=== PATIENT | female | born 1970 | race Caucasian/White ===

== ENCOUNTER → 2019-02-07 11:50 | Outpatient (CLI) | payer BC, SELFPAY ==
[2019-01-29 11:26] VITALS: BMI 36.8
== END ==
PROVIDERS: Family Provider Family Medicine; PCP Family Medicine; Referring Provider Obstetrics & Gynecology; Visit Provider Obstetrics & Gynecology
DX: R93.89 Abnormal findings on diagnostic imaging of other specified body structures (principal); N39.3 Stress incontinence (female) (male); N92.6 Irregular menstruation, unspecified

== ENCOUNTER → 2019-02-20 11:59 | Outpatient (CLI) | payer BC, SELFPAY ==
[2019-01-29 11:26] VITALS: BMI 36.8
--- NOTE | 2019-02-20 12:03 | US_ITS ---
STUDY: ULTRASOUND OF THE FEMALE PELVIS - COMPLETE REASON FOR EXAM: Female, 48 years old. Menorrhagia. LMP: February 09, 2019. TECHNIQUE: Transabdominal and Transvaginal TECHNICAL QUALITY: Adequate. COMPARISON: None. FINDINGS: The uterus is anteverted and is in a midline position. The uterus is enlarged and measures 11.7 cm x 9.3 cm x 6.4 cm. Normal uterine cervix. The endometrium measures 9 mm in thickness, and is hyperechoic. There is no demonstrated endometrial mass. Multiple fibroids are seen. The largest measures 4.5 cm x 5.5 cm x 4.2 cm. I.U.D. - The patient does not have an I.U.D. The right ovary is visualized. The right ovary measures 3.4 cm x 2.6 cm x 2.1 cm. There is no right ovarian cyst or ovarian mass. There is no visualized right adnexal mass or complex lesion. There is normal arterial and normal venous vascularity. The left ovary is visualized. The left ovary measures 3.7 cm x 2.8 cm x 2.0 cm. There is no left ovarian cyst or ovarian mass. There is no visualized left adnexal mass or complex lesion. There is normal arterial and normal venous vascularity. There is no fluid in the cul-de-sac. Polycystic ovary disease: No. US/Pelvic (Non ) IMPRESSION: Enlarged fibroid uterus with at least 3 distinct fibroids. The largest measures 4.5 cm x 5.5 cm by 4.2 cm. Electronically Signed: Wai Escobar, at 14:24 EST , Service support ,
--- NOTE | 2019-02-20 12:03 | US_ITS ---
STUDY: ULTRASOUND OF THE FEMALE PELVIS - COMPLETE REASON FOR EXAM: Female, 48 years old. Menorrhagia. LMP: February 09, 2019. TECHNIQUE: Transabdominal and Transvaginal TECHNICAL QUALITY: Adequate. COMPARISON: None. FINDINGS: The uterus is anteverted and is in a midline position. The uterus is enlarged and measures 11.7 cm x 9.3 cm x 6.4 cm. Normal uterine cervix. The endometrium measures 9 mm in thickness, and is hyperechoic. There is no demonstrated endometrial mass. Multiple fibroids are seen. The largest measures 4.5 cm x 5.5 cm x 4.2 cm. I.U.D. - The patient does not have an I.U.D. The right ovary is visualized. The right ovary measures 3.4 cm x 2.6 cm x 2.1 cm. There is no right ovarian cyst or ovarian mass. There is no visualized right adnexal mass or complex lesion. There is normal arterial and normal venous vascularity. The left ovary is visualized. The left ovary measures 3.7 cm x 2.8 cm x 2.0 cm. There is no left ovarian cyst or ovarian mass. There is no visualized left adnexal mass or complex lesion. There is normal arterial and normal venous vascularity. There is no fluid in the cul-de-sac. Polycystic ovary disease: No. US/Transvaginal Non- IMPRESSION: Enlarged fibroid uterus with at least 3 distinct fibroids. The largest measures 4.5 cm x 5.5 cm by 4.2 cm. Electronically Signed: Wai Escobar, at 14:24 EST , Service support ,
== END ==
PROVIDERS: Family Provider Family Medicine; PCP Family Medicine; Referring Provider Obstetrics & Gynecology; Visit Provider Obstetrics & Gynecology
DX: N92.6 Irregular menstruation, unspecified (principal); D25.9 Leiomyoma of uterus, unspecified
CPT/HCPCS: 76830; 76856; 93976

== ENCOUNTER 2019-03-16 17:03 | Observation (INO) | payer BC, SELFPAY ==
[2019-01-29 11:26] VITALS: BMI 36.8
[2019-03-12 13:07] VITALS: BMI 36.8
--- NOTE | 2019-03-12 13:49 | EKG12_ITS ---
Test Reason : PREOP Blood Pressure : / mmHG Vent. Rate : 070 BPM Atrial Rate : 070 BPM P-R Int : 140 ms QRS Dur : 080 ms QT Int : 396 ms P-R-T Axes : 043 020 021 degrees QTc Int : 427 ms Normal sinus rhythm Low voltage QRS Borderline ECG Confirmed by JAMARCUS CARMONA, JULES ([id number]), makeup editor WALLACE HARVEY ([id number]) on 03/13/2019 2:48:23 PM Referred By: Sherrell Ashton Confirmed By:JULES RICKETTS MD
[2019-03-12 15:24] LABS: Hematocrit 39.7 % (37-47); Hemoglobin 12.8 g/dL (12.0-15.0); Mean Corp Hgb Conc 32.2 g/dL (32-36); Mean Corpuscular Hgb 28.7 pg (27.0-32.0); Mean Platelet Vol. 10.6 fl (6.2-12.0); Platelet Count 266 K/mm3 (150-450); RBC Distribution Width CV 13.2 % (11.6-14.6); RBC Distribution Width SD 42.8 fl (35.1-43.9); Red Blood Count 4.46 M/mm3 (4.2-5.4)
[2019-03-12 16:05] LABS: ALB/GLOB Ratio 0.9 RATIO (0.9-2.4); AST(SGOT) 23 U/L (15-37); Alanine Aminotransfer ALT/SGPT 31 U/L (13-56); Albumin, Serum 3.5 g/dL (3.2-5.0); Alkaline Phosphatase 77 U/L (45-117); Anion Gap 7 (5-15); BUN 13 mg/dL (7-18); BUN/Creat Ratio 19.3 RATIO (10-20); Calcium,Total 8.7 mg/dL (8.5-10.1); Chloride 104 mmol/L (98-107); Creatinine, Serum 0.67 mg/dL (0.55-1.02); EST Glomerular Filtration Rate 99 mL/min (>60); Est Glom Filt Rate - Afr Amer 120 mL/min (>60); Glucose 107 mg/dL (74-106); Potassium 3.7 mmol/L (3.5-5.1); Protein, Total 7.5 g/dL (6.4-8.2); Sodium Level 139 mmol/L (136-145)
[2019-03-16] VITALS (10 sets, daily range): BP systolic 116–147; BP diastolic 70–85; PULSE 62–86; RESP 16–18; TEMP 36.6–36.9; O2SAT 93–99; BMI 36.0; BMI 38.7
[2019-03-16] MEDS: Magnesium Sulfate 4gm/100mL 4 GM/100 ML IV.SOLN. IV (07:00)
[2019-03-16 11:34] LABS: Pregnancy, Urine Negative Negative
[2019-03-16 11:35] LABS: Internal QC Validated? YES +Cl - CLEAR BKGD
[2019-03-16] MEDS: Lactated Ringers 1,000 ML 40 ML IV (11:56)
[2019-03-16] MEDS: dexAMETHasone 10 MG/ML Vial 8 MG IV (11:57)
[2019-03-16] MEDS: Celecoxib 200 MG Capsule 400 MG PO (11:58)
[2019-03-16] MEDS: Scopolamine 1mg/72hr Patch 1 PATCH TRANSDERM. (11:58)
[2019-03-16] MEDS: Gabapentin 600 MG Tablet PO (11:58)
[2019-03-16] MEDS: Acetaminophen 500 MG Tablet 1000 MG PO (11:59)
--- NOTE | 2019-03-16 12:01 | PCM.HPOB.BLA ---
- Problem List (1) Stress incontinence Status: Acute Comment: plan urogyn eval (2) Endometrial thickening on ultra sound Status: Acute (3) Irregular menstrual bleeding Status: Acute Comment: failed ablation, recommend TVHBSO, plan sling combo case with urogyn, US ordered. nl cbc and tsh with PCP. 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 Is patient in pain?: No Allergies No Known Allergies Allergy (Verified 03/12/19 13:06) Medications albuterol sulfate HFA 90 mcg/actuation aerosol inhaler 1 puff INHALATION Q6H PRN 01/29/19 [History Confirmed 03/12/19] triamcinolone acetonide 0.1 % topical cream 1 applic TOPICAL DAILY PRN 01/29/19 [History Confirmed 03/12/19] lorazepam 1 mg tablet 1 mg PO BID PRN #14 tab 03/12/19 [Rx Confirmed 03/12/19] Is last menstrual period known: No Post menopausal: No Patient : No : No [facility] Medical History Anxiety (Acute) Surgical History History of cholecystectomy (Acute) History of endometrial ablation (Acute) Status post eye surgery (Acute) Family History Mother Cancer, Onset Age: 48 ovarian cancer colon cancer Eric disease Father Diabetes Hypertension CVA (cerebral vascular accident) Social History (Updated 03/12/19 @ 18:18 by Sherrell Ashton MD) Smoking Status: Never smoker alcohol intake: never substance use type: does not use caffeine: Yes what type of physical activity do you participate in: walking seatbelt use: always do you feel safe at home: Yes additional social history: Ronny FAJARDO Patient is a nurse at the [employer] HPI pre op: Details: MATT GARNER is a 48 year old who presents for preop visit. she is going to have an LAVH for AUB and fibroids, and sling for DEREK Pregancy History 2 Elective abortions Hx Para 2 Spontaneous abortions Hx # Term Pregnancies Ectopic pregnancies Hx # Pregnancies Multiple births # of living children ROS Const Constitutional: Denies fatigue, fever(s), headache(s), increased appetite, poor appetite, weight gain or weight loss ENT ENT: Denies dizziness or dry mouth Cardio Card: Denies chest pain Resp Resp: Denies cough or dyspnea GI GI: Reports as per HPI; denies abdominal pain, constipation, nausea or vomiting Musc Musc: Denies joint pain, back pain or muscle weakness Skin Skin/Breast: Denies hair loss, change in hair, dry skin, breast lump, breast pain or breast skin changes Neuro Neuro: Denies dizziness Psych Psych: Denies anxiety or depression Endo Endo: Denies cold intolerance, excessive sweating, heat intolerance or increased thirst Alan/Lymph Hematologic/Lymphatic: Denies easy bleeding, Denies easy bruising, Denies enlarged lymph nodes Exam Const General: cooperative, healthy appearing, comfortable, no acute distress, well developed Nutritional Appearance: average body habitus Orientation: alert [facility] Head: normal to inspection, normocephalic Ears: hearing grossly normal bilaterally, external ears normal Nose: external nose normal, nares normal Face and sinus: normal facial exam Neck Neck: normal visual inspection, no lymphadenopathy, trachea midline Thyroid: thyroid normal Chest Chest palpation & inspection: normal inspection of the chest Resp Effort & Inspection: normal respiratory effort Auscultation: clear to auscultation bilaterally Cardio Rate: regular rate Rhythm: regular rhythm Heart Sounds: S1 normal, S2 normal GI Inspection: normal to inspection, non-distended Palpation: soft, no hepatosplenomegaly General: bladder normal to palpation External Female Exam: normal external appearance, normal appearance of the urethra Urethra: normal appearance of the urethra Speculum Exam - Vagina: normal appearance of the vagina, normal vaginal discharge Speculum Exam - Cervix: normal appearance of the cervix, nontender Bimanual Exam- Vagina & Uterus: bladder normal to palpation, No cervical tenderness Bimanual Exam- Adnexa, other: normal adnexae, adnexae mobile, no adnexal masses, No pelvic support normal, rectocele Pelvic Support: abnormal, rectocele Musc Cervical Spine: other Other: gross motor intact no deficits, full bilateral strength Skin General: no rashes or lesions noted Neuro General: alert, awake, moves all extremities, no focal motor deficits Motor: muscle tone normal throughout Extrem General: normal to inspection, no pedal edema Psych Appearance: grossly normal Mental Status: mental status grossly normal Affect: normal affect Speech and Movement: speech and movement normal Assessment & Plan Problems 1. Stress incontinence N39.3 plan urogyn eval 2. Irregular menstrual bleeding N92.6 failed ablation, recommend TVHBSO, plan sling combo case with urogyn, US ordered. nl cbc and tsh with PCP. Plan After discussing the patient's diagnosis and treatment plan options, patient wishes to proceed with surgical management. I have discussed with the patient the risks, benefits, and alternatives of the procedure which include but are not limited to risks of anesthesia, bleeding, infection, possible damage to bowel, bladder, or surrounding vasculature which could lead to additional surgery to evaluate any complications. Patient agrees to procedure and wishes to proceed. Medications New: lorazepam (Ativan) 1 mg PO BID PRN 14 tabs 0RF N92.6 Coding Level of Care Code No Charge UPDATE- I have seen the patient and performed any clinically relevant updates to the history and physical exam. Sherrell Ashton MD
[2019-03-16 12:20] LABS: Bedside Glucose 82 mg/dL (70-110)
--- NOTE | 2019-03-16 13:00 | HYST_PTH ---
PATIENT: MATT GARNER LOC: [facility]3 U#:[id number] AGE/SX: 48/F ROOM: MS314 RE03/16/[address]: Dr. Sherrell Ashton MD : 1970 BED: 1 DIS: 03/17/2019 SPEC #: [id number] RECD: 03/16/19 15:43 STATUS: AMBER REChas #: [id number] JESSICA: 03/16/19 13:[address]: Sherrell Ashton DEPT: SURGICAL PATHOLOGY RECD BY: Go Alfaro ENTERED: 03/19/19 09:46 SP TYPE: HYSTERECT OTHR DR: MD Dr. Queta Anderson MD Tissues: Uterus, NOS Procedures: Surgery Specimen Level V HEADER OPERATION: ERS, lap vaginal hysterectomy, bilateral salpingo oophorectomy PRE-OP DIAGNOSIS: Stress incontinence, endometrial thickening on ultra sound, irregular menstrual bleeding TISSUE SUBMITTED: Uterus, bilateral fallopian tubes and ovaries MICROSCOPIC DIAGNOSIS Uterus, hysterectomy: Cervix - squamous metaplasia and mild chronic inflammation. Endometrium - secretory endometrium. Myometrium - leiomyoma and focal adenomyosis. Right ovary - serous cyst adenoma. Right fallopian tube - benign paratubal cyst. Left ovary - follicular cyst. Left fallopian tube - no pathologic change. AM:saran 03/20/19 MICROSCOPIC DESCRIPTION Slides are reviewed. GROSS DESCRIPTION Received in fixative is one container labeled with the patient's name and designated uterus. The specimen consists of a hysterectomy specimen consisting of uterus, cervix, attached bilateral fallopian tubes, right ovary and detached left ovary. The uterus with cervix weighs 234 gm and measures 14 x 9 x 6 cm. The serosal surface is yu and glistening. A subserosal nodule is noted. The ectocervical mucosa is unremarkable. The external os is oval in contour. The endocervical canal measures 3 cm in length and the endocervical mucosa is yu, glistening and unremarkable. The triangular endometrial cavity measures 6 cm in length and up to 3 cm in width. The endometrium is yu, glistening and without mass lesion and measures 0.1 cm in thickness. Section of uterine wall reveals multiple intramural and subserosal nodular masses. The largest mass is subserosal in location and measures 4 cm in diameter. The uninvolved uterine wall measures 2.5 cm in thickness. The right fallopian tube measures 7 cm in length and 0.5 cm in diameter. Fimbrial end is identified. No masses are noted. Soft cystic right ovary measures 5 x 2.5 x 2 cm. Cysts measuring 3.5 cm in greatest dimension. The left fallopian tube measures 7 cm in length and 0.6 cm in diameter. Fimbrial end is identified. Sections reveal unremarkable cut surfaces. The left ovary measures 3 x 2.5 x 2 cm. The section reveals a cyst filled with clear fluid measuring 0.5 cm in greatest dimension. Operations Supervisor sections are submitted in 12 cassettes as follows: 1 - anterior cervix, 2 - posterior cervix, 3 & 4 - anterior uterine wall, 5 & 6 - posterior uterine wall, 7 - largest nodular mass, 8 - second largest nodular mass, 9 - smallest nodular masses, 10 - right fallopian tube, right ovary, cyst, 11 - more sectioned right ovary including cyst, 12 - left fallopian tube and ovary. VINITA:saran 03/19/19 TC: 1 CPT: 94450
[2019-03-16] MEDS: Ondansetron 4 MG/2 ML Vial IV (13:15)
[2019-03-16] MEDS: Lubricating Jelly 60 GM Tube 30 GM TOPICAL (13:45)
[2019-03-16] MEDS: Cefazolin 2 GM in 0.9% Normal Saline 100 ML IV (13:45)
[2019-03-16] MEDS: Bupivacaine 0.25% 30 ML Vial (14:00)
[2019-03-16] MEDS: Vasopressin 20 UNITS/ML Vial (14:24)
[2019-03-16] MEDS: Estrogens,Conj. 1 Tube 1 DOSE (14:24)
--- NOTE | 2019-03-16 16:48 | PCM.OPRPT ---
Problem List (1) Cystocele Status: Acute (2) Rectocele Status: Acute (3) Stress incontinence Status: Acute Comment: plan urogyn mita Report of Operation Date of Procedure: 03/16/19 Pre-Operative Diagnosis: Cystocele, rectocele, apical prolapse, stress urinary incontinence Post-Operative Diagnosis: Same, good apical support and the sacrospinous ligament portion of the procedure was aborted Surgery/Procedure Performed:: Anterior and posterior repair, mid urethral sling and cystoscopy Type of Anesthesia:: General Estimated Blood Loss (mL): 25cc Description of Procedure: The patient is a 48-year-old female who presented to the office with evidence of pelvic organ prolapse and stress incontinence. She was going to undergo a hysterectomy and desired concomitant repair. She was evaluated with a cystoscopy and urodynamics. Informed consent was obtained. Patient was taken to the operating room and placed in the operating room table. Anesthesia monitored the head, neck, airway, IV access and vital signs throughout the case. Once anesthesia was appropriately administered the patient was prepped and draped in usual sterile fashion and a 16 [place] Amato catheter was inserted. She underwent an LAVH per Dr. Ashton, and the case was turned over to wi following closure of the cuff. At this time the anterior wall was grasped and injected with vasopressin for hydrostatic dissection and hemostatic control. A midline incision approximately 1.5 cm in length was then made. Both sharp and blunt dissection ensued until the pubocervical fascia was identified bilaterally. This was brought together with 2-0 Vicryl in interrupted fashion, 2 layer repair. The vaginal mucosa was closed with 2-0 running interlocking 0 Vicryl. Attention was turned towards the rectum. Her rectum was significantly scarred into the vaginal wall which was very thin. Almost all of the dissection posteriorly was performed in a sharp fashion with Metzenbaums. The rectovaginal fascia was brought together in a 2 layer repair. The perineal body was reconstructed with a perineoplasty in a 2 layer repair. The vaginal wall was then closed with running interlocking 2-0 Vicryl. The mid urethra was injected with vasopressin and a midline incision was made. The area around the urethra was also very scarred and difficult to dissect. The dissection here was mostly sharp as well. The alto's mid urethral sling was inserted using the trochars first the patient's right side than the left. The sling lay flat against the urethra and was tensioned using the tensioning suture. The suture was then cut. The incision was closed using running interlocking 2-0 Vicryl. The Amato catheter was removed and a cystoscopy was performed revealing bilateral ureteral jets. No entry into the urinary bladder with any foreign object was identified. There was no bleeding or any injury to the mucosa. At this time the cystoscope was removed and the Amato catheter was placed. The vagina was packed with Premarin cream and vaginal packing. She was awakened and taken to the recovery room in good condition. There were no complications during the procedure. Grafts/Implants Used: Altis midurethral sling - Complications none - Admit VTE Documentation VTE Present on Admission: Yes VTE Mechan Device Prophylaxis: SCD's VTE Pharm Prophylaxis ordered?: Yes
--- NOTE | 2019-03-16 17:00 | DCINST_ITS ---
Discharge Diet: No Restrictions Discharge Activity: May Not Drive - for 2 weeks May resume sexual activity in: 8 weeks Lifting Restrictions: 5 pounds Additional Activity Instructions:: no exercise, no strenuous activity, no intercourse, nothing per vagina Call your doctor if your incision/area has: Continuous Slow Oozing, Sudden Increased Bleeding, Foul Smelling Discharge Call your doctor if you observe: Fever of 101 or Higher, Inability to urinate, Inability to have a bowel movement, Calf discomfort, Uncontrolled pain Allergies/Adverse Reactions: Allergies No Known Allergies Allergy (Verified 03/16/19 11:36) Medications to take at Discharge albuterol sulfate HFA 90 mcg/actuation aerosol inhaler 1 puff INHALATION Q6H PRN 01/29/19 triamcinolone acetonide 0.1 % topical cream 1 applic TOPICAL DAILY PRN 01/29/19 lorazepam 1 mg tablet 1 mg PO BID PRN #14 tab 03/12/19 Cephalexin [Keflex] 500 mg PO Q12.TCU #6 cap 03/17/19 Naproxen [Naprosyn] 250 - 500 mg PO Q8H PRN PRN #30 tab 03/17/19 Oxycodone HCl/Acetaminophen [Percocet 5-325] 1 - 2 tab PO Q6H PRN PRN 7 Days #15 tab 03/17/19 The following prescriptions were given: Cephalexin [Keflex] 500 mg PO Q12.TCU #6 cap Prescription Printed Naproxen [Naprosyn] 250 - 500 mg PO Q8H PRN PRN #30 tab PRN Reason: MILD PAIN Transmission Status: Received by [facility] Oxycodone HCl/Acetaminophen [Percocet 5-325] 1 - 2 tab PO Q6H PRN PRN 7 Days #15 tab PRN Reason: Pain Transmission Status: Received by [facility] Orders to be completed after discharge: Type & Screen Time Frame: 03/07/19, Facility: [facility], Location: Laboratory 12 Lead EKG [[facility]] Time Frame: 03/07/19, Facility: [facility], Location: Cardiovascular Services CBC-Complete Blood Cnt No Diff Time Frame: 03/07/19, Facility: [facility], Location: Laboratory Comprehensive Metabolic Profil Time Frame: 03/07/19, Facility: [facility], Location: Laboratory Primary Care Physician: Abner Kidd MD [Primary Care Provider] - Test Results: Test results from this visit will be discussed in further detail at your follow- up appointment, if applicable. Please Follow Up With: Queta Ivory MD When: call office for appt Proposed Discharge Date: 03/17/19
[2019-03-16] MEDS: Lactated Ringers 1,000 ML 125 ML IV ×2 (17:23→23:49)
[2019-03-16] MEDS: oxyCODONE 5 MG Tablet PO (20:06)
[2019-03-16] MEDS: Cephalexin 500 MG Capsule PO (22:08)
--- NOTE | 2019-03-17 03:30 | OP.PCM_ITS ---
Problem List (1) Stress incontinence Status: Acute Comment: plan urogyn eval (2) Endometrial thickening on ultra sound Status: Acute (3) Irregular menstrual bleeding Status: Acute Comment: failed ablation, recommend TVHBSO, plan sling combo case with urogyn, US ordered. nl cbc and tsh with PCP. Report of Operation Date of Procedure: 03/16/19 Pre-Operative Diagnosis: aub. fibroid strong family history of ovarian cancer Post-Operative Diagnosis: same Surgery/Procedure Performed:: lavh bso Description of Surgical Findings:: enlarged fibroid uterus medical scientific officer: Queta Luna Type of Anesthesia:: General Special Medications: none Specimen's removed: uterus tubes ovaries Drains: gray Estimated Blood Loss (mL): 150 Fluids Replaced: crystalloid Description of Procedure: Patient received preoperative antibiotics and SCDs were on preoperatively. Patient was taken back to the operating room and placed in the dorsal lithotomy position. General anesthesia was induced and patient was prepped and draped in normal sterile fashion. Uterine manipulator was placed inside the uterus and Gray catheter placed in the bladder. The umbilicus was grasped with towel clamps and an intraumbilical incision was made after injecting with quarter percent Marcaine and a Veress needle entered into the abdomen confirmed to be intra-abdominal with a low opening pressure. Abdomen was insufflated with CO2 gas and the Veress needle removed and the 5 mm trocar was placed under direct visualization without complication. Right and left lower quadrants were transilluminated and injected with quarter percent Marcaine and 5 mm ports placed under direct visualization. Pelvis was well visualized see operative findings for additional information. Bilateral fallopian tubes were identified and transected with the LigaSure device across the mesosalpinx to the level of the utero-ovarian ligament which was also transected with the LigaSure device. The broad ligament was opened up by transecting the round ligament bilaterally and skeletonizing the uterine vessels bilaterally and creating a bladder flap using the LigaSure device. The uterine arteries were transected bilaterally with good visualization of the bladder and the ureters were seen to be inferior lateral to the operative area. Attention was then paid to the vaginal portion of the procedure and the cervix was grasped with Paola clamps and circumferentially injected with dilute vasopressin. A circumferential incision was made and the vaginal mucosa was mobilized off posteriorly and the cul-de-sac entered into sharply and a longneck speculum placed. The anterior cul-de-sac was then identified and entered into sharply. The uterosacral ligaments were clamped cut and suture ligated with 0 Monocryl bilaterally followed by the cardinal ligaments which were clamped cut and suture ligated bilaterally with 0 Monocryl. The uterus serially descended and was removed without difficulty with minimal morcellation. Pelvic sidewall pedicles were checked and noted to have excellent hemostasis. The vaginal mucosa was reapproximated incorporating the posterior peritoneum. This was reapproximated using 0 Vicryl [id number] sutures. Excellent hemostasis was noted. The cystoscopy was then performed and bilateral ureteral strong spray was noted and the bladder was noted to have no abnormality or lesions seen. Gray catheter was replaced and then attention paid to the abdominal portion of the procedure again. The pelvis and cul-de-sac was well visualized and no significant active bleeding noted but some raw areas were seen on the peritoneum and therefore Dennise was applied. Pressure was taken down and the areas visualized and noted of excellent hemostasis. All ports were removed under direct visualization without complication and the abdomen was desufflated of air. The instruments removed from the abdomen and the vagina vaginal sweep was negative. Port sites on the abdomen were closed with 4-0 Monocryl interrupted sutures and Steri's and windows were applied. dr luna's repair was then performed please see her additional operative note Grafts/Implants Used: see hui report - Complications none - Admit VTE Documentation VTE Present on Admission: No Multi Select Codes - Urinary/Genital Urinary/Genital CPT Codes: 38727 LAVH+BS/O <250gr Uterus
--- NOTE | 2019-03-17 03:34 | PN.OBGYN_ITS ---
Patient Problems: Active and Suspected Problems (Last Reviewed 03/12/19 @ 13:06 by Sophie Goldstein) Cystocele (Acute) Rectocele (Acute) Subjective: patient recovering well, denies CP, SOB, N, or V. patient is ambulating, voiding ,tolerating adequate po, and pain is controlled with oral medications. - Physical Exam Vitals/I&O's: Vital Signs Temp Pulse Resp BP Pulse Ox 98.1 F 86 18 134/74 H 93 03/16/19 22:00 03/16/19 22:00 03/16/19 22:00 03/16/19 22:00 03/16/19 22:00 Oxygen Flow Rate (L/min) 2 Oxygen Delivery Method Nasal Cannula Weight: 211 lb 13.828 oz Body Mass Index (BMI) 38.7 Intake and Output for Last 24 Hours 03/15/19 03/16/19 03/17/19 23:59 23:59 23:59 Intake Total 2014.072 / 2014.072 Output Total 2049 Balance -34.928 / -34.928 General: Alert, Oriented x3 Laboratory Results 03/16/19 11:15: Urine Test Negative 03/16/19 12:11: POC Glucose 82 Current Medications Cephalexin (Keflex) 500 mg PO Q8 [facility] Last Admin: 03/16/19 22:08 Dose: 500 mg Documented by: Hydromorphone HCl (Dilaudid Inj) 0.5 - 1.5 mg IV Q3H PRN PRN PRN Reason: Pain Score 4-10/10 Lactated Ringer's () 1,000 mls @ 40 mls/hr IV .Q25H [facility] Last Infusion: 03/16/19 17:20 Dose: Infused Documented by: Lactated Ringer's () 1,000 mls @ 125 mls/hr IV .Q8H [facility] Last Admin: 03/16/19 23:49 Dose: 125 mls/hr Documented by: Insulin Human Lispro (Humalog Kwikpen (Bkc)) 0 unit SC Q4H PRN PRN; Protocol PRN Reason: BG >/= 180, SEE PROTOCOL Ketorolac Tromethamine (Toradol) 15 mg IV Q8H PRN PRN PRN Reason: 1-4/10 pain Stop: 03/21/19 21:31 Ondansetron HCl (Zofran) 4 mg IV Q4H PRN PRN PRN Reason: NAUSEA Oxycodone HCl (Oxyir) 5 - 10 mg PO Q4H PRN PRN PRN Reason: Pain Score 4-10/10 Last Admin: 03/16/19 20:06 Dose: 10 mg Documented by: Medical Necessity - Tobacco Use Smoking Status: Never smoker Tobacco Use: Non-smoker Assessment/Plan All Active Problems (Last Reviewed 03/12/19 @ 13:06 by Sophie Goldstein) Cystocele (Acute) Rectocele (Acute) Stress incontinence (Acute) Endometrial thickening on ultra sound (Acute) Irregular menstrual bleeding (Acute) patient is s/p lavh bso pelvic floor repair POD 1 1. routine ERAS protocol postop care- increase ambulation, encourage oral intake and oral control of pain. lovenox and scds for dvt prophylaxis, patient stable for discharge to home.
--- NOTE | 2019-03-17 03:34 | PCM.DC.VHY ---
Discharge Diet: No Restrictions Discharge Activity: May Not Drive - for 2 weeks May resume sexual activity in: 8 weeks Additional Activity Instructions:: no exercise, no strenuous activity, no intercourse, nothing per vagina Call your doctor if your incision/area has: Continuous Slow Oozing, Sudden Increased Bleeding, Foul Smelling Discharge Call your doctor if you observe: Fever of 101 or Higher, Inability to urinate, Inability to have a bowel movement, Calf discomfort, Uncontrolled pain Allergies/Adverse Reactions: Allergies No Known Allergies Allergy (Verified 03/16/19 11:36) Medications to take at Discharge albuterol sulfate HFA 90 mcg/actuation aerosol inhaler 1 puff INHALATION Q6H PRN 01/29/19 triamcinolone acetonide 0.1 % topical cream 1 applic TOPICAL DAILY PRN 01/29/19 lorazepam 1 mg tablet 1 mg PO BID PRN #14 tab 03/12/19 Naproxen [Naprosyn] 250 - 500 mg PO Q8H PRN PRN #30 tab 03/17/19 Oxycodone HCl/Acetaminophen [Percocet 5-325] 1 - 2 tablet PO Q6H PRN PRN 7 Days #15 tablet 03/17/19 The following prescriptions were given: Naproxen [Naprosyn] 250 - 500 mg PO Q8H PRN PRN #30 tab PRN Reason: MILD PAIN Transmission Status: Pending to [facility] Oxycodone HCl/Acetaminophen [Percocet 5-325] 1 - 2 tablet PO Q6H PRN PRN 7 Days #15 tablet PRN Reason: Pain Transmission Status: Sent to [facility] Orders to be completed after discharge: Type & Screen Time Frame: 03/07/19, Facility: [facility], Location: Laboratory 12 Lead EKG [[facility]] Time Frame: 03/07/19, Facility: [facility], Location: Cardiovascular Services CBC-Complete Blood Cnt No Diff Time Frame: 03/07/19, Facility: [facility], Location: Laboratory Comprehensive Metabolic Profil Time Frame: 03/07/19, Facility: [facility], Location: Laboratory Primary Care Physician: Abner Kidd MD [Primary Care Provider] - Test Results: Test results from this visit will be discussed in further detail at your follow-up appointment, if applicable. Please Follow Up With: Queta Ivory MD When: call office for appt Proposed Discharge Date: 03/17/19
[2019-03-17 04:00] VITALS: BP 113/70; PULSE 60; RESP 18; TEMP 37.1; O2SAT 94; O2SAT 95
[2019-03-17] MEDS: Ketorolac 15 MG/ML Vial IV (05:32)
[2019-03-17] MEDS: Cephalexin 500 MG Capsule PO (05:32)
[2019-03-17 07:18] VITALS: O2SAT 94
[2019-03-17 07:50] VITALS: BP 123/58; PULSE 66; RESP 16; TEMP 36.9; O2SAT 94
--- NOTE | 2019-03-17 08:29 | PCM.PN.BLA ---
Progress Note Up in chair. Tender bottom, otherwise doing well. Passing gas, tolerating oral intake. no nausea or vomiting. Amato and packing removed. Await trial of void. Home today. STROKE Vital Signs/Narrative: Vital Signs Pulse Ox 03/17/19 07:18 94
[2019-03-17] MEDS: oxyCODONE 5 MG Tablet PO (10:01)
== END 2019-03-17 11:12 | disposition home or self-care (01) ==
LOC: SDC 03-19 07:44 → MS3 03-19 07:45
PROVIDERS: Urology; Admitting Provider Obstetrics & Gynecology; Family Provider Family Medicine; PCP Family Medicine; Referring Provider Obstetrics & Gynecology; Visit Provider Obstetrics & Gynecology
PROC: 0UT9FZZ Resection of Uterus, Via Natural or Artificial Opening With Percutaneous Endoscopic Assistance (ICD-10-PCS; CPT 58552; principal; 2019-03-16 12:35)
PROC: (CPT 57260; 2019-03-16 12:35)
DX: N39.3 Stress incontinence (female) (male) (principal); R93.89 Abnormal findings on diagnostic imaging of other specified body structures; D25.9 Leiomyoma of uterus, unspecified; N92.6 Irregular menstruation, unspecified; Z80.41 Family history of malignant neoplasm of ovary; N83.201 Unspecified ovarian cyst, right side; N83.02 Follicular cyst of left ovary; Z79.899 Other long term (current) drug therapy; F41.9 Anxiety disorder, unspecified; N81.4 Uterovaginal prolapse, unspecified
CPT/HCPCS: 57260; 57288; 58552; 36415; 80053; 81025; 82962; 85027; 86850; 86900; 86901; 88307; 93005; 96361; 96374; 99218; 99251; J7120; G0378; G0379; G0463; J2405

== ENCOUNTER → 2019-04-07 12:24 | Outpatient (CLI) | payer BC, SELFPAY ==
[2019-03-29 13:44] VITALS: BMI 38.7
== END ==
PROVIDERS: Family Provider Family Medicine; PCP Family Medicine; Visit Provider Urology
DX: R19.7 Diarrhea, unspecified (principal)
CPT/HCPCS: 87493

== ENCOUNTER → 2019-09-07 08:28 | Outpatient (CLI) | payer BC, SELFPAY ==
[2019-03-29 13:44] VITALS: BMI 38.7
--- NOTE | 2019-09-07 08:45 | RAD_ITS ---
STUDY: X-RAY - LUMBAR SPINE REASON FOR EXAM: Female, 49 years old. LBP, W/ RADIATION DOWN RLE. NKI TECHNIQUE: 5 view(s) of the lumbar spine were obtained including oblique views. COMPARISON: None FINDINGS: Normal lumbar lordosis. There is no substantial scoliosis. There is a normal alignment of the vertebrae. Anterior spondylosis at the L5-S1 level. Marked degree of disc space narrowing and subchondral sclerosis at the L5-S1 level. Surgical clips are seen in the right upper quadrant most likely secondary to prior cholecystectomy. RAD/L/S Spine Min 4 Views IMPRESSION: Degenerative changes of the spine, as detailed above. Electronically Signed: Wai Escobar, at 10:19 EDT , Service support ,
== END ==
PROVIDERS: PCP Family Medicine; Referring Provider Urology; Visit Provider Urology
DX: M54.5 Low back pain (principal)
CPT/HCPCS: 72110

== ENCOUNTER → 2019-12-27 | Outpatient (CLI) | payer BC, SELFPAY ==
[2019-03-29 13:44] VITALS: BMI 38.7
== END | disposition home or self-care (01) ==
LOC: LABSPEC 12:45
PROVIDERS: PCP Family Medicine; Referring Provider Family Medicine; Visit Provider Family Medicine
DX: Z03.818 Encounter for observation for suspected exposure to other biological agents ruled out (principal)
CPT/HCPCS: 87635; U0003

== ENCOUNTER → 2020-01-10 | Outpatient (CLI) | payer BC, SELFPAY ==
[2019-03-29 13:44] VITALS: BMI 38.7
== END | disposition home or self-care (01) ==
LOC: LABSPEC 10:33
PROVIDERS: Referring Provider Family Medicine; Visit Provider Family Medicine
DX: Z11.59 Encounter for screening for other viral diseases (principal)
CPT/HCPCS: 87635; U0003

== ENCOUNTER → 2020-01-24 | Outpatient (CLI) | payer BC, SELFPAY ==
[2019-03-29 13:44] VITALS: BMI 38.7
== END | disposition home or self-care (01) ==
LOC: LABSPEC 12:46
PROVIDERS: Referring Provider Family Medicine; Visit Provider Family Medicine
DX: Z03.818 Encounter for observation for suspected exposure to other biological agents ruled out (principal)
CPT/HCPCS: 87635; U0003

== ENCOUNTER → 2020-02-07 | Outpatient (CLI) | payer BC, SELFPAY ==
[2019-03-29 13:44] VITALS: BMI 38.7
== END | disposition home or self-care (01) ==
LOC: LABSPEC 10:55
PROVIDERS: Referring Provider Family Medicine; Visit Provider Family Medicine
DX: Z03.818 Encounter for observation for suspected exposure to other biological agents ruled out (principal)
CPT/HCPCS: 87635; U0003

== ENCOUNTER → 2020-02-21 | Outpatient (CLI) | payer BC, SELFPAY ==
[2019-03-29 13:44] VITALS: BMI 38.7
== END | disposition home or self-care (01) ==
LOC: LABSPEC 12:13
PROVIDERS: Referring Provider Family Medicine; Visit Provider Family Medicine
DX: Z03.818 Encounter for observation for suspected exposure to other biological agents ruled out (principal)
CPT/HCPCS: 87635; U0003

== ENCOUNTER 2020-02-27 14:06 | Emergency (ER) | payer BC, SELFPAY ==
[2019-03-29 13:44] VITALS: BMI 38.7
[2020-02-27 14:07] VITALS: BP 152/96; PULSE 83; PULSE 89; RESP 16; TEMP 36.4; O2SAT 97; O2SAT 98; BMI 37.3
--- NOTE | 2020-02-27 15:39 | CT_ITS ---
STUDY: CT ABDOMEN AND PELVIS WITHOUT CONTRAST REASON FOR EXAM: Female, 49 years old. RLQ PAIN X FEW DAYS. NAUSEA, SENT HERE FOR APPY RADIATION DOSAGE (If Supplied By Facility): CTDIvol = ( 19.00 ) mGy, DLP = ( 1016.06 ) mGycm TECHNIQUE: Transaxial images were obtained from the dome of the diaphragm to the symphysis pubis without oral contrast, and without intravenous contrast. Sagittal and coronal images were reconstructed. Individualized dose optimization techniques were used for this CT. COMPARISON: 03/23/2017 FINDINGS: The visualized lung bases are unremarkable. The visualized portions of the heart are within normal limits. There is decreased attenuation of the liver consistent with steatosis. There are surgical clips in the gallbladder fossa consistent with a prior cholecystectomy. Normal spleen. Normal pancreas. Normal bilateral adrenal glands. Normal right kidney. Normal left kidney. Normal visualized stomach. Normal small intestine. Normal colon. The appendix is visualized and appears normal. Normal abdominal aorta. Normal inferior vena cava. Normal retroperitoneum. Normal urinary bladder. Normal abdominal wall. Normal osseous structures. CT/Abdomen/Pelvis without Cont IMPRESSION: No acute abnormality. Status post cholecystectomy with fatty infiltration of the liver. Electronically Signed: Maco Parker MD at 16:06 EST Tel , Service support ,
--- NOTE | 2020-02-27 16:06 | ED.DCSUM_ITS ---
- ER Visit Summary Date of Service: 02/27/20 Chief Complaint: Abdominal pain History of Present Illness: The patient is a [address] Kidd. She reports that she has lower right quadrant abdominal pain began 2 days ago and is gradually worsened. Is a burning pain is 10 of 10 worsening to 10 currently. Is worsened by movement. Is relieved by nothing. She has nausea without vomiting. No diarrhea. Her last bowel was today. No melena or hematochezia. No dysuria or frequency. 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 Her last test was 2 days ago and it was negative. Physical Examination: Vitals: Stable. Afebrile. General: Well-nourished and well-developed. Head: Normocephalic atraumatic. Neck: Supple, no lymphadenopathy. No JVD. Nontender. Cardiovascular: Regular rate and rhythm. No murmurs. Respiratory: No respiratory distress. Clear to auscultation bilaterally. Abdominal: Soft, moderate tenderness to palpation in the mid abdomen on the right to the right lower quadrant, nondistended, normal bowel sounds. No g uarding, rebound, or peritoneal signs. Back: Nontender. Extremities: Nontender, no edema. Skin: Normal color, no rash. Neurologic: Alert and oriented ?3. Cranial nerves II through XII are intact. Normal strength and sensation. Psych: Normal affect. Test Results: CBC is normal. Chem-7 shows a chloride of 108. LFTs show an alk phos of 121, ALT of 133, AST of 48. Lipase is elevated at 621. UA is negative. Clinical Impression(s) from Imaging Studies Abdomen/Pelvis CT 02/27/20 15:39 IMPRESSION: No acute abnormality. Status post cholecystectomy with fatty infiltration of the liver. Electronically Signed: Maco Parker MD at 16:06 EST Tel , Service support , Emergency Department Course and Treatment: Patient refused pain or nausea medications. She is resting comfortably. Treatment Plan: Patient feels well and would like to go home. She will be discharged instructions to take in clear liquids only. Use Zofran and Percocet for pain. Follow-up with her primary care physician in 2 days for another exam. Return to the emergency department for any worsening symptoms. Disposition: To home in improved and stable condition. Impression: 1. Mild pancreatitis. This note was generated with [employer] dictation software. It may contain incorrect words, spelling, and punctuation that were not noted in review of the chart prior to signing ED Disposition - Plan for ED Patient: Instructions: Acute Pancreatitis Prescriptions: Oxycodone HCl/Acetaminophen [Percocet 5/325] 1 tab PO Q6H PRN PRN 3 Days #12 tab PRN Reason: Pain Prescription Printed Ondansetron [Zofran Odt] 4 mg PO Q8H PRN PRN #10 tab PRN Reason: Nausea Prescription Printed Referrals: Abner Kidd MD [Primary Care Provider] - 2 Days
[2020-02-27 16:28] LABS: Bacteria 0 SEEN /hpf (None Seen); Mucous, Urine 0 SEEN /hpf (<or=2+); Red Blood Cells-Urine 0 SEEN /hpf (0-5)
[2020-02-27 16:32] LABS: Absolute Lymphocyte Count 1.66 X10^3/uL (0.83-4.51); Absolute Neutrophil Count 3.6 X10^3/uL (2.0-7.7); Basophil# 0.03 X10^3/uL; Basophil% 0.5 % (0-1); Eosinophil# 0.16 X10^3/uL; Eosinophils% 2.6 % (0-5); Hematocrit 42.4 % (37-47); Hemoglobin 13.6 g/dL (12.0-15.0); Lymphocyte # 1.66 X10^3/ul (4.0); Lymphocyte % 27.3 % (19-41); Mean Corp Hgb Conc 32.1 g/dL (32-36); Mean Corpuscular Hgb 28.1 pg (27.0-32.0); Mean Corpuscular Volume 87.6 fL (81-99); Mean Platelet Vol. 10.1 fl (6.2-12.0); Monocyte# 0.54 X10^3/uL; Monocyte% 8.9 % (0-10); NRBC Flagged by Analyzer 0 % (0-5); Neutrophil # 3.63 X10^3/uL (2.7-7.7); Neutrophil % 59.9 % (47-70); Platelet Count 262 K/mm3 (150-450); RBC Distribution Width CV 12.9 % (11.6-14.6); RBC Distribution Width SD 41.4 fl (35.1-43.9); Red Blood Count 4.84 M/mm3 (4.2-5.4); White Blood Count 6.1 K/mm3 (4.4-11.0)
[2020-02-27 16:36] LABS: Color, Urine Yellow (Yellow); Glucose, Dipstick Normal (Normal); Ketone-Dipstick Negative (Negative); Leukocyte Esterase-Dipstick 25 /ul (Negative); Nitrite-Dipstick Negative (Negative); Occult Blood-Urine Negative /ul (Negative); Protein-Dipstick Negative (Negative); Urine Bilirubin Dipstick Negative (Negative); Urine Clarity Clear (Clear); Urine Urobilinogen Normal (Normal)
[2020-02-27 16:47] LABS: Squamous Epithelial Cells - UA 0-5 SEEN /hpf (5-10)
[2020-02-27 16:48] LABS: White Blood Cells 0-5 SEEN /hpf (0-5)
[2020-02-27 16:58] LABS: AST(SGOT) 48 U/L (15-37); Alanine Aminotransfer ALT/SGPT 133 U/L (13-56); Albumin, Serum 3.7 g/dL (3.2-5.0); Alkaline Phosphatase 121 U/L (45-117); Anion Gap 6 (5-15); BUN 10 mg/dL (7-18); BUN/Creat Ratio 13.2 RATIO (10-20); Bilirubin, Direct 0.08 mg/dL (0.00-0.30); Calcium,Total 9.3 mg/dL (8.5-10.1); Chloride 108 mmol/L (98-107); Creatinine, Serum 0.76 mg/dL (0.55-1.02); EST Glomerular Filtration Rate 86 mL/min (>60); Est Glom Filt Rate - Afr Amer 104 mL/min (>60); Estimated Creatinine Clearance 70.04 ml/min; Glucose 91 mg/dL (74-106); Lipase 621 U/L (73-393); Potassium 3.9 mmol/L (3.5-5.1); Protein, Total 7.7 g/dL (6.4-8.2); Sodium Level 140 mmol/L (136-145)
--- NOTE | 2020-02-27 19:09 | ED.RN ---
chart opened to check status of discharge for [facility]
== END 2020-02-27 17:55 | disposition home or self-care (01) ==
LOC: ED 16:28
PROVIDERS: Emergency Provider Emergency Medicine; PCP Family Medicine
DX: K85.90 Acute pancreatitis without necrosis or infection, unspecified (principal)
CPT/HCPCS: 74176; 80048; 80076; 81001; 83690; 85025; 99284; A4216

== ENCOUNTER 2020-05-19 10:47 | Emergency (ER) | payer BC, SELFPAY ==
[2020-05-19 10:48] VITALS: BP 154/96; PULSE 78; RESP 18; TEMP 35.9; O2SAT 97; BMI 35.6
--- NOTE | 2020-05-19 11:11 | VDLE_ITS ---
Reason For Study: Pain RIGHT GSV is normal. CFV is compressible, spontaneous, phasic, competent and demonstrates normal augmentation. FV is compressible, spontaneous, phasic, competent and demonstrates normal augmentation. POP V is compressible, spontaneous, phasic, competent and demonstrates normal augmentation. T/P Trunk is compressible. PTV is compressible. RT PerV is compressible. Procedure This is a venous duplex using B-mode, color flow and spectral Doppler. Exam performed portable in ED. A preliminary report was called and/or faxed to [facility]. Interpretation Summary There is no evidence of right lower extremity deep vein thrombosis. Right great saphenous vein appears patent and compressible segmentally. Ordering Physician: Sukhi Perales Referring Physician: Abner John Performed By: Eden Orr RVT
--- NOTE | 2020-05-19 11:11 | RAD_ITS ---
STUDY: X-RAY - RIGHT FOOT CLINICAL: Female, 49 years old. PT WITH RT FOOT PAIN FOR PAST MONTH. STATES WORSE LAST NIGHT. NO KNOWN INJURY TECHNIQUE: 3 view(s) of the foot. COMPARISON: None. FINDINGS: No acute fracture, dislocation or osseous destruction. Plantar spur. Achilles enthesophyte. Accessory navicular. Soft tissue swelling at the ankle. RAD/Foot min 3 Views IMPRESSION: Right foot intact Ankle soft tissue swelling Electronically Signed: Octavio Milton DO at 11:41 EST Tel , Service support ,
--- NOTE | 2020-05-19 11:11 | RAD_ITS ---
STUDY: X-RAY - RIGHT ANKLE REASON FOR EXAM: Female, 49 years old. PT WITH RT FOOT PAIN FOR PAST MONTH. STATES WORSE LAST NIGHT. NO KNOWN INJURY TECHNIQUE: 3 view(s) of the ankle. COMPARISON: None. FINDINGS: No acute fracture, dislocation or osseous destruction. Ankle mortise well aligned. Plantar spur. Achilles enthesophyte. Soft tissue swelling at the ankle predominantly medially. RAD/Ankle min 3 Views IMPRESSION: Right ankle intact Medial soft tissue swelling Electronically Signed: Octavio Milton DO at 11:40 EST Tel , Service support ,
--- NOTE | 2020-05-19 12:18 | ED.DCSUM_ITS ---
History of Present Illness Chief Complaint: Lower Extremity Injury Narrative: Patient presenting for evaluation secondary to right leg pain. Patient states that over the course about the last month she has been dealing with right lower extremity pain. This is atraumatic in onset, typically will get worse after she has been on her feet all day. Its associated with asymmetric swelling of the right calf ankle and foot. This gets better at night when she elevates it. Patient states that it is not associated with any sort of numbness. She denies any fevers or constitutional symptoms. No unintended weight loss or night sweats associated with it. Patient denies any history of DVT or PE. Patient did have a total hysterectomy back in January, but was completely fine for multiple months prior to this starting. Patient denies any history of diabetes. View of systems otherwise negative. Past Medical History - Allergies and Home Meds Allergies/Adverse Reactions: Allergies No Known Allergies Allergy (Verified 05/19/20 10:50) Primary Care Physician: Abner Kidd MD [Primary Care Provider] - Prior records reviewed: Yes Past Medical History: None Smoking Status: Never smoker Alcohol: None Drugs: None Review of Systems All systems negative except as indicated General: Denies: Chills, Fever, Sweats Eyes: Denies: Visual changes - bilaterally, Diplopia ENT: Denies: Rhinorrhea, Sore throat Cardiovascular: Denies: Chest pain, Palpitations Respiratory: Denies: Dyspnea, Cough, Dyspnea on exertion Gastrointestinal: Denies: Abdominal pain, Nausea, Vomiting, Diarrhea, Melena, Hematochezia Genitourinary: Denies: Dysuria, Hematuria, Frequency Musculoskeletal: Reports: Extremity Pain Skin: Denies: Rash, Wounds Neurological: Denies: Headache, Weakness, Numbness Physical Exam Vital Signs/Narrative: Vital Signs Temp Pulse Resp BP Pulse Ox 05/19/20 10:48 96.6 F L 78 18 154/96 H 97 - Extremity Exam Right Ankle: - - Trace swelling is noted of the patient's right ankle when compared to the left. Tenderness to palpation over the medial malleolus, foot, as well as the calf. No palpable cord. 2+ bilaterally symmetric DP and PT pulses normal capillary refill normal sensation. Right Foot: - - Normal range of motion of the knee ankle and foot. No evidence of skin changes. General: Well nourished, Well developed Head: Normocephalic, Atraumatic Neck: Full ROM Cardiovascular: Regular rate, Regular rhythm Respiratory: No distress Abdomen: Soft Skin: Normal color, No rash Neurological: Alert, Oriented x3, Cranial nerves II-XII grossly intact, Normal Strength, Normal Sensation Diagnostic/Tx/Re-eval - Medical Decision Making Patient presented secondary to foot and ankle pain. There is good perfusion of the ankle, no signs of cellulitis or infectious etiology, no signs of circulatory dysfunction. Duplex ultrasound was performed of that leg and is found to be negative. 3 view radiographs of the ankle and foot by my personal review as well as radiology show some soft tissue swelling no evidence of acute bony pathology. Patient at this point does not have an emergent issue such as DVT, infection, vascular compromise, or fracture. Patient be placed in a walking boot for immobilization. She already has follow-up with foot and ankle the end of this month she will be provided foot and ankle call or contact centre manager should she be able to get in earlier. She was recommended to continue elevating at night and [id number] analgesics. Patient was discharged in stable condition. ED Disposition - Plan for ED Patient: Disposition: Home or Assisted Living Diagnosis: Ankle pain, right Instructions: ED Ankle Sprain (Adult) Referrals: Nany Greenwood DPM [STAFF PHYSICIAN] - As Needed
== END 2020-05-19 13:04 | disposition home or self-care (01) ==
PROVIDERS: Emergency Provider Emergency Medicine; PCP Family Medicine
DX: M25.571 Pain in right ankle and joints of right foot (principal)
CPT/HCPCS: 73610; 73630; 93971; 99283

== ENCOUNTER 2021-11-24 05:28 | Emergency (ER) | payer BC, SELFPAY ==
[2021-11-24 05:29] VITALS: BP 168/99; PULSE 116; RESP 20; TEMP 38.6; O2SAT 96; BMI 36.6
--- NOTE | 2021-11-24 05:49 | EKG12_ITS ---
Test Reason : DYSRHYTHMIA Blood Pressure : / mmHG Vent. Rate : 113 BPM Atrial Rate : 113 BPM P-R Int : 156 ms QRS Dur : 072 ms QT Int : 280 ms P-R-T Axes : 048 021 -11 degrees QTc Int : 384 ms Sinus tachycardia Nonspecific T wave abnormality Abnormal ECG Confirmed by JAMARCUS CARMONA, JULES ([id number]), web content editor FADI REGALADO ([id number]) on 11/26/2021 9:58:12 AM Referred By: ERMELINDA Confirmed By:JULES RICKETTS MD
--- NOTE | 2021-11-24 05:49 | RAD_ITS ---
STUDY: X-RAY CHEST REASON FOR EXAM: Female, 51 years old. Cough TECHNIQUE: Portable, upright, AP chest radiograph COMPARISON: None. FINDINGS: Left more than right lung base atelectasis. No focal consolidation. There is no demonstrated pleural abnormality. Normal size heart. Normal mediastinum and karuna. Normal visualized pulmonary arteries. Normal visualized aortic arch and descending thoracic aorta. There is no demonstrated abnormality of the visualized soft tissue structures of the upper abdomen. RAD/Chest 1 View (Portable) IMPRESSION: Left more than right lung base atelectasis. Electronically Signed: Rajiv Dailey MD at 6:21 EDT ,
--- NOTE | 2021-11-24 05:51 | EDS_ITS ---
HPI History of Present Illness Chief Complaint: General Illness Informant: patient Narrative Narrative: Patient states that since last night she has gotten chills rigors myalgias. She states she hurts from her head to her toe. She has a slight sore throat. She states she had a very weak cough twice but does not feel short of breath and is not really having pulmonary symptoms. She has had some mild nausea but no vomiting. For the last few days her stools have been a little softer but no diarrhea. No abdominal pain. Patient had negative COVID testing yesterday. She gets tested twice a week because she works in a [employer]. But she also stated that about 6 patients and 6 workers in the last week have come down with COVID so it is definitely going around and she has been exposed to it. Nothing really makes symptoms better or worse. [facility] Medical History Anxiety Home Medications albuterol sulfate 90 mcg/actuation aerosol inhaler (ProAir HFA) 1 puff inhalation Q6H PRN Sob &/Or Wheezing 01/29/19 [History Last Taken Unknown] triamcinolone acetonide 0.1 % topical cream 1 applic topical DAILY PRN skin irritation 01/29/19 [History Last Taken Unknown] lorazepam 1 mg tablet (Ativan) 1 mg PO BID PRN anxiety #14 tabs 03/12/19 [Rx Last Taken 03/16/19] ondansetron 4 mg disintegrating tablet 4 mg PO Q8H PRN nausea and vomiting #10 tabs 11/24/21 [Rx Last Taken Unknown] Allergy/AdvReac Type Severity Reaction Status Date / Time No Known Allergies Allergy Verified 11/24/21 05:33 Family History Mother Cancer, Onset Age: 48 ovarian cancer colon cancer Eric disease Father Diabetes Hypertension CVA (cerebral vascular accident) Surgical History History of cholecystectomy History of endometrial ablation History of laparoscopic-assisted vaginal hysterectomy (~03/2019) Status post eye surgery Social History Smoking Status: Never smoker alcohol intake: never substance use type: does not use caffeine: Yes what type of physical activity do you participate in: walking seatbelt use: always do you feel safe at home: Yes additional social history: Ronny FAJARDO 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 ED Constitutional Constitutional ED: Reports chills, fever(s) and subjective Eyes Eyes: Denies change in vision ENT ENT ED: Reports rhinorrhea and sore throat Cardiovascular Cardiovascular: Denies chest pain or palpitations Respiratory/Chest Respiratory/Chest: Reports cough; Denies dyspnea or dyspnea on exertion Gastrointestinal Gastrointestinal: Reports diarrhea and nausea; Denies abdominal pain, constipation, melena or vomiting Genitourinary Genitourinary ED: Denies dysuria or hematuria Musculoskeletal Musculoskeletal: Reports myalgias Integumentary Denies rash Neurologic Neurologic: Denies paresthesias Endocrine Endocrinology: Denies polydipsia or polyuria Hematologic/Lymphatic Hematologic/Lymphatic: Denies easy bleeding or easy bruising Allergic/Immunologic Allergic/Immunologic ED: Denies urticaria EXAM Physical Exam Const Vital Signs: 11/24/21 05:29 11/24/21 05:34 Temperature 101.5 F H Temperature Source Temporal Pulse Rate 116 H Respiratory Rate 20 H Blood Pressure 168/99 H Blood Pressure Mean 122 Pulse Ox 96 Oxygen Delivery Method Room Air Positive well nourished and well developed General Appearance ED: well developed and NAD; Negative for cyanotic or diaphoretic HEENT Reports moist mucous membranes HEENT Narrative: Minimal erythema. No exudate. Voice is normal. No notable lymphadenopathy. No sinus tenderness. Eyes EOMs intact bilaterally General Eye ED: Negative for scleral icterus Neck supple Chest Wall inspection of chest normal Resp normal respiratory effort and clear to auscultation bilaterally Cardio regular rhythm Rate: tachycardic GI normal to inspection, nondistended, normoactive bowel sounds, non-tender and non-distended Palpation: soft Back/Spine no CVA tenderness Extremity General Extremety ED: Negative for edema or tenderness General Extremity: Negative for edema Neuro oriented x3 Psych mental status grossly normal Skin no rashes or lesions noted MDM MDM MDM Narrative Medical decision making narrative: Patient CBC is normal. Electrolytes show no marked abnormalities. Minimal elevation of chloride and glucose. Urine shows a few white cells but is not a clean-catch. And she is not having UTI symptoms. I will send this off for culture though. Chest x-ray showed atelectasis. No infiltrate. Patient is feeling better. Her heart rate is down to about 90. Her sats are normal. She would like to just go home. I told her that the influenza was negative. However, I did send off a PCR of COVID. Since she has symptoms consistent with this and known exposure I thought this was the best test. This should come back later today. She is comfortable with this plan. I also discussed that since her symptoms are really just started in the less than last half a day, this could progress or change. If she has further symptoms, dyspnea, sputum production, pains or any other concerns she should return. Lab Data Attestation: I reviewed the patient's lab results. Labs: Laboratory Results - last 24 hr 11/24/21 11/24/21 11/24/21 05:39 05:39 06:08 WBC 4.4 RBC 4.68 Hgb 13.3 Hct 41.0 MCV 87.6 MCH 28.4 MCHC 32.4 RDW Std Deviation 41.0 RDW Coeff of Alistair 12.9 Plt Count 185 MPV 10.6 Immature Gran % (Auto) 1.600 H Neut % (Auto) 81.1 H Lymph % (Auto) 6.2 L [place] % (Auto) 8.5 Eos % (Auto) 2.1 Baso % (Auto) 0.5 Absolute Neuts (auto) 3.5 Absolute Lymphs (auto) 0.27 L Nucleated RBC % 0 Differential Comment SCANNED Sodium 139 Potassium 3.8 Chloride 108 H Carbon Dioxide 26.0 Anion Gap 5 BUN 10 Creatinine 0.91 Estim Creat Clear Calc 57.20 Est GFR (MDRD) Af Amer 83 Est GFR (MDRD) Non-Af 69 BUN/Creatinine Ratio 11.0 Glucose 123 H Calcium 8.7 Urine Color Yellow Urine Clarity Sl. Cloudy Urine pH 6.0 Ur Specific [place] 1.015 Urine Protein Negative Urine Glucose (UA) Normal Urine Ketones Negative Urine Occult Blood Negative Urine Nitrite Negative Urine Bilirubin Negative Urine Urobilinogen Normal Ur Leukocyte Esterase 100 H Urine RBC 0 SEEN Urine WBC 5-10 SEEN Ur Squamous Epith Cells 10-25 SEEN Urine Bacteria 1+ Urine Mucus 0 SEEN Radiography Diagnostic Testing: Clinical Impression(s) from Imaging Studies Chest X-Ray 11/24/21 05:49 IMPRESSION: Left more than right lung base atelectasis. Electronically Signed: Rajiv Dailey MD at 6:21 EDT , EKG Initial EKG: Comments: EKG done for tachycardia read by me shows sinus rhythm with tachycardic rate at 113. No ventricular ectopy. Nonspecific ST and T wave changes but no sign of acute infarct or ischemia. TN interval, QRS duration and QTc normal. Discharge Plan Triage Chief Complaint: General Illness ED Provider: Spencer Dumont Dx/Rx/DC Orders Clinical Impression: Acute viral syndrome, Nausea Instructions: ED Viral Syndrome (Adult) Prescriptions: New ondansetron 4 mg tablet,disintegrating 4 mg PO Q8H PRN (Reason: nausea and vomiting) Qty: 10 0RF No Action albuterol sulfate [ProAir HFA] 90 mcg/actuation HFA aerosol inhaler 1 puff INHALATION Q6H PRN (Reason: Sob &/Or Wheezing) triamcinolone acetonide 0.1 % cream 1 applic TOPICAL DAILY PRN (Reason: skin irritation) lorazepam [Ativan] 1 mg tablet 1 mg PO BID PRN (Reason: anxiety) Qty: 14 0RF Primary Care Provider: Abner Kidd Referrals: Abner Kidd MD [Primary Care Provider] - 1 Week if not improving Disposition Disposition: Home, Self Care
[2021-11-24] MEDS: Ondansetron 4 MG/2 ML Vial IV (06:00)
[2021-11-24] MEDS: Acetaminophen 500 MG Tablet 1000 MG PO (06:00)
[2021-11-24] MEDS: 0.9% Normal Saline 1,000 ML 1000 ML IV (06:01)
[2021-11-24 06:07] LABS: Absolute Lymphocyte Count 0.27 X10^3/uL (0.83-4.51); Absolute Neutrophil Count 3.5 X10^3/uL (2.0-7.7); Basophil# 0.02 X10^3/uL; Basophil% 0.5 % (0-1); Eosinophil# 0.09 X10^3/uL; Eosinophils% 2.1 % (0-5); Hemoglobin 13.3 g/dL (12.0-15.0); Lymphocyte # 0.27 X10^3/ul (0.83-4.51); Lymphocyte % 6.2 % (19-41); Mean Corp Hgb Conc 32.4 g/dL (32-36); Mean Corpuscular Hgb 28.4 pg (27.0-32.0); Mean Corpuscular Volume 87.6 fL (81-99); Mean Platelet Vol. 10.6 fl (6.2-12.0); Monocyte# 0.37 X10^3/uL; Monocyte% 8.5 % (0-10); NRBC Flagged by Analyzer 0 % (0-5); Neutrophil # 3.54 X10^3/uL (2.7-7.7); Neutrophil % 81.1 % (47-70); POSITIVE DIFFERENTIAL YES; Platelet Count 185 K/mm3 (150-450); RBC Distribution Width CV 12.9 % (11.6-14.6); Red Blood Count 4.68 M/mm3 (4.2-5.4); White Blood Count 4.4 K/mm3 (4.4-11.0)
[2021-11-24 06:12] LABS: Mucous, Urine 0 SEEN /hpf (<or=2+); Red Blood Cells-Urine 0 SEEN /hpf (0-5)
[2021-11-24 06:14] LABS: Color, Urine Yellow (Yellow); Glucose, Dipstick Normal (Normal); Ketone-Dipstick Negative (Negative); Leukocyte Esterase-Dipstick 100 /ul (Negative); Nitrite-Dipstick Negative (Negative); Occult Blood-Urine Negative /ul (Negative); Protein-Dipstick Negative (Negative); Specific Gravity, Urine 1.015 (1.002-1.030); Urine Bilirubin Dipstick Negative (Negative); Urine Clarity Sl. Cloudy (Clear); Urine Urobilinogen Normal (Normal)
[2021-11-24 06:20] LABS: Anion Gap 5 (5-15); BUN 10 mg/dL (7-18); Calcium,Total 8.7 mg/dL (8.5-10.1); Chloride 108 mmol/L (98-107); Creatinine, Serum 0.91 mg/dL (0.55-1.02); EST Glomerular Filtration Rate 69 mL/min (>60); Est Glom Filt Rate - Afr Amer 83 mL/min (>60); Glucose 123 mg/dL (74-106); Potassium 3.8 mmol/L (3.5-5.1); Sodium Level 139 mmol/L (136-145)
[2021-11-24 06:21] LABS: Bacteria 1+ /hpf (None Seen); Squamous Epithelial Cells - UA 10-25 SEEN /hpf (5-10); White Blood Cells 5-10 SEEN /hpf (0-5)
[2021-11-24 06:46] LABS: Differential Comment SCANNED
[2021-11-24 07:00] VITALS: BP 137/73; PULSE 91; RESP 15; O2SAT 92
== END 2021-11-24 07:13 | disposition home or self-care (01) ==
PROVIDERS: Emergency Provider Emergency Medicine; PCP Family Medicine; Visit Provider Emergency Medicine
DX: B34.9 Viral infection, unspecified (principal); R11.0 Nausea; R00.0 Tachycardia, unspecified; Z20.822 Contact with and (suspected) exposure to COVID-19
CPT/HCPCS: 71045; 80048; 81001; 85025; 87086; 87088; 87635; 87804; 93005; 96361; 96374; 99285; J7030; A4216; J2405; U0003; U0005

== ENCOUNTER 2022-07-06 08:38 | Emergency (ER) | payer BC, SELFPAY ==
[2022-07-06 08:39] VITALS: BP 134/84; PULSE 80; RESP 18; TEMP 36.6; O2SAT 99
[2022-07-06 08:41] VITALS: BMI 36.0
--- NOTE | 2022-07-06 09:01 | CT_ITS ---
EXAM: CT ABDOMEN AND PELVIS WITHOUT INTRAVENOUS CONTRAST CLINICAL INDICATION: Pain TECHNIQUE: Helically acquired images were obtained of the abdomen and pelvis without intravenous contrast. This CT exam was performed using one or more of the following dose reduction techniques: automated exposure control, adjustment of the mA and/or kV according to patient size, and/or use of iterative reconstruction technique. This report was created using [employer] report generation technology. COMPARISON: CT Abdomen Pelvis dated 02/27/2020 FINDINGS: LOWER THORAX: Normal. Lung bases are clear. No cardiomegaly. No pericardial effusion. ABDOMEN: LIVER: Normal. Homogeneous. GALLBLADDER AND BILE DUCTS: Cholecystectomy clips are in place. No intra- or extrahepatic biliary ductal dilation. PANCREAS: Small focus of calcification within the tail of the pancreas is unchanged. No focal cystic mass. SPLEEN: Normal. Normal size without focal cystic or solid mass. ADRENALS: Normal. No nodules. KIDNEYS AND URETERS: Normal. No hydronephrosis. STOMACH AND BOWEL: Diverticulosis of the colon noted without evidence of acute diverticulitis. PELVIS: APPENDIX: Appendix is visualized and normal in appearance. BLADDER: Normal. REPRODUCTIVE: Uterus is absent. ABDOMEN and PELVIS: INTRAPERITONEAL SPACE: Normal. No ascites or other fluid collection. No free air. BONES/JOINTS: No suspicious lytic or blastic abnormality. SOFT TISSUES: Normal. No discrete abdominal or pelvic wall hernia. VASCULATURE: Normal. Abdominal aorta is non-dilated. LYMPH NODES: Normal. No enlarged lymph nodes. CT/Abdomen/Pelvis without Cont IMPRESSION: 1. No acute abdominal or pelvic abnormality. 2. Diverticulosis coli. Electronically Signed: Jose Alberto Meyers MD at 11:10 EDT ,
--- NOTE | 2022-07-06 09:01 | ED.VIS.GI ---
HPI HPI - GI History of Present Illness Chief Complaint: Abd Pain Narrative Narrative: 51-year old female past medical history of hypercholesterolemia presents with 8 to 9 days of right-sided flank pain. Past surgical history includes cholecystectomy and hysterectomy. She states that the pain is relatively constant, and is mainly in the right flank radiating towards the front. She denies any dysuria or hematuria. No diarrhea or problems with bowel movements. No fevers or chills but she has been nauseated and dry heaving. Last evening, she felt sharp, stabbing pain in her low back. She denies any exacerbating or alleviating factors to her sharp, stabbing right flank pain that waxes and wanes additionally. PFSH [facility] Medical History Anxiety Home Medications albuterol sulfate 90 mcg/actuation aerosol inhaler (ProAir HFA) 1 puff inhalation Q6H PRN Sob &/Or Wheezing 01/29/19 [History Last Taken Unknown] triamcinolone acetonide 0.1 % topical cream 1 applic topical DAILY PRN skin irritation 01/29/19 [History Last Taken Unknown] lorazepam 1 mg tablet (Ativan) 1 mg PO BID PRN anxiety #14 tabs 03/12/19 [Rx Last Taken 03/16/19] ondansetron 4 mg disintegrating tablet 4 mg PO Q8H PRN nausea and vomiting #10 tabs 11/24/21 [Rx Last Taken Unknown] Allergy/AdvReac Type Severity Reaction Status Date / Time No Known Allergies Allergy Verified 07/06/22 08:41 Family History Mother Cancer, Onset Age: 48 ovarian cancer colon cancer Eric disease Father Diabetes Hypertension CVA (cerebral vascular accident) Surgical History History of cholecystectomy History of endometrial ablation History of laparoscopic-assisted vaginal hysterectomy (~03/2019) Status post eye surgery Social History Smoking Status: Never smoker alcohol intake: never substance use type: does not use caffeine: Yes what type of physical activity do you participate in: walking seatbelt use: always do you feel safe at home: Yes additional social history: Ronny FAJARDO 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 HEENT: No sore throat. No neck pain. No loss of vision. No rhinorrhea. Cardiovascular: No chest pain. No palpitations. No pedal edema. Respiratory: No cough, no shortness of breath. Abdominal: No abdominal pain. No nausea. No vomiting. Genitourinary: No dysuria. No hematuria. Positive right flank pain radiating towards the front. Musculoskeletal: No myalgias. No arthralgias. Neurologic: No headaches. No dizziness. No lightheadedness. Skin: No rash. No change in color. Psychiatric: No depression. No anxiety. EXAM Physical Exam Narrative Exam Narrative: Afebrile. Vital signs noted. HEENT: Normocephalic. Atraumatic. PERRL, EOMI. Neck soft and supple. No point tenderness or step off. Cardiovascular: Regular rate and rhythm. No murmurs, rubs, or gallops appreciated. Respiratory: No tachypnea. Lungs clear to auscultation bilaterally. Gastrointestinal: Abdomen soft, nontender, with normoactive bowel sounds. No rebound or guarding. Neurological: Awake. Alert. Nonfocal, nonlateralizing. Skin: No rash. Normal color. No pallor. Musculoskeletal: No pedal edema. Full range of motion extremities. Const Vital Signs: 07/06/22 08:39 Temperature 97.9 F Temperature Source Temporal Pulse Rate 80 Respiratory Rate 18 Blood Pressure 134/84 H Blood Pressure Mean 100 Pulse Ox 99 Oxygen Delivery Method Room Air MDM MDM MDM Narrative Medical decision making narrative: In the differential diagnosis is appendectomy versus ureterolithiasis versus nonspecific abdominal pain. I feel appendicitis is less likely as she is afebrile, she has no pain over McBurney's point, and her symptoms have been constant, and ongoing for the last week. CBC, CMP, and lipase will be obtained for her dry heaving. Urinalysis will be obtained to rule out hematuria or infection. Additionally, I do feel CT imaging without contrast is indicated to look for hydronephrosis or ureterolithiasis. She was administered normal saline 1 L intravenously along with Toradol for analgesia, and ondansetron for her nausea. I reviewed her laboratory work, she has a normal white count and normal hemoglobin. Review of her electrolytes show chloride elevated at 111. In review of her urinalysis, I do not see evidence of infection with elevated white cells. I do not feel that antibiotics are indicated. I reviewed her CT imaging and reviewed the radiology report as well, which shows no acute process. At this point in time, she is resting comfortably. I feel she can be discharged safely home with a diagnosis of nonspecific abdominal pain/flank pain. She was given a note to be off work today. She will follow-up with her primary care physician. Return instructions to the emergency department were reviewed. Disposition is discharged home in stable condition. History & Record Review Discussion w/independent historian: Patient Additional record(s) reviewed:: Prior ED visit Lab Data Attestation: I reviewed the patient's lab results. Labs: Laboratory Results - last 24 hr 07/06/22 07/06/22 07/06/22 09:25 09:25 09:25 WBC Cancelled Corrected WBC Cancelled RBC Cancelled Hgb Cancelled Hct Cancelled MCV Cancelled MCH Cancelled MCHC Cancelled RDW Std Deviation Cancelled RDW Coeff of Alistair Cancelled Plt Count Cancelled MPV Cancelled Immature Gran % (Auto) Cancelled Neut % (Auto) Cancelled Lymph % (Auto) Cancelled [place] % (Auto) Cancelled Eos % (Auto) Cancelled Baso % (Auto) Cancelled Absolute Neuts (auto) Cancelled Absolute Lymphs (auto) Cancelled Total Counted Cancelled Neutrophils % (Manual) Cancelled Band Neutrophils % Cancelled Lymphocytes % (Manual) Cancelled Monocytes % (Manual) Cancelled Eosinophils % (Manual) Cancelled Basophils % (Manual) Cancelled Metamyelocytes % Cancelled Myelocytes % Cancelled Promyelocytes % Cancelled Blast Cells % Cancelled Plasma Cell % (Manual) Cancelled Other Cells % Cancelled Nucleated RBC % Cancelled Nucleated RBCs/100 WBC Cancelled Differential Comment Cancelled Diff Path Review Cancelled Hypersegmented Neuts Cancelled Atypical Lymphocytes Cancelled Reactive Lymphocytes Cancelled Smudge Cells Cancelled Toxic Granulation Cancelled Toxic Vacuolation Cancelled Dohle Bodies Cancelled Bren Rods Cancelled Platelet Estimate Cancelled Plt Morphology Comment Cancelled RBC Morphology Cancelled Polychromasia Cancelled Hypochromasia Cancelled Poikilocytosis Cancelled Basophilic Stippling Cancelled Anisocytosis Cancelled Microcytosis Cancelled Macrocytosis Cancelled Spherocytes Cancelled Sickle Cells Cancelled Target Cells Cancelled Tear Drop Cells Cancelled Ovalocytes Cancelled Stomatocytes Cancelled Pablo-Lindon Bodies Cancelled [place] Cells Cancelled Bite Cells Cancelled Crenated Cell Cancelled Acanthocytes (Spur) Cancelled Rouleaux Cancelled Schistocytes Cancelled Sodium 140 Potassium 3.9 Chloride 111 H Carbon Dioxide 25.0 Anion Gap 4 L BUN 10 Creatinine 0.75 Estim Creat Clear Calc 69.40 Est GFR (MDRD) Af Amer 105 Est GFR (MDRD) Non-Af 86 BUN/Creatinine Ratio 13.4 Glucose 110 H Calcium 8.7 Total Bilirubin 0.30 AST 23 ALT 45 Alkaline Phosphatase 79 Total Protein 7.2 Albumin 3.6 Globulin 3.6 Albumin/Globulin Ratio 1.0 Lipase 147 Urine Color Yellow Urine Clarity Clear Urine pH 5.0 Ur Specific [place] 1.015 Urine Protein Negative Urine Glucose (UA) Normal Urine Ketones Negative Urine Occult Blood Negative Urine Nitrite Negative Urine Bilirubin Negative Urine Urobilinogen Normal Ur Leukocyte Esterase 25 H Urine RBC 0 SEEN Urine WBC 0-5 SEEN Ur Squamous Epith Cells 0-5 SEEN Urine Bacteria 2+ Urine Mucus 0 SEEN 07/06/22 09:40 WBC 5.6 Corrected WBC RBC 4.40 Hgb 12.8 Hct 38.3 MCV 87.0 MCH 29.1 MCHC 33.4 RDW Std Deviation 40.4 RDW Coeff of Alistair 12.9 Plt Count 226 MPV 10.6 Immature Gran % (Auto) 0.700 Neut % (Auto) 57.8 Lymph % (Auto) 30.1 [place] % (Auto) 8.1 Eos % (Auto) 2.9 Baso % (Auto) 0.4 Absolute Neuts (auto) 3.2 Absolute Lymphs (auto) 1.67 Total Counted Neutrophils % (Manual) Band Neutrophils % Lymphocytes % (Manual) Monocytes % (Manual) Eosinophils % (Manual) Basophils % (Manual) Metamyelocytes % Myelocytes % Promyelocytes % Blast Cells % Plasma Cell % (Manual) Other Cells % Nucleated RBC % 0 Nucleated RBCs/100 WBC Differential Comment Diff Path Review Hypersegmented Neuts Atypical Lymphocytes Reactive Lymphocytes Smudge Cells Toxic Granulation Toxic Vacuolation Dohle Bodies Bren Rods Platelet Estimate Plt Morphology Comment RBC Morphology Polychromasia Hypochromasia Poikilocytosis Basophilic Stippling Anisocytosis Microcytosis Macrocytosis Spherocytes Sickle Cells Target Cells Tear Drop Cells Ovalocytes Stomatocytes Pablo-Lindon Bodies Juli Cells Bite Cells Crenated Cell Acanthocytes (Spur) Rouleaux Schistocytes Sodium Potassium Chloride Carbon Dioxide Anion Gap BUN Creatinine Estim Creat Clear Calc Est GFR (MDRD) Af Amer Est GFR (MDRD) Non-Af BUN/Creatinine Ratio Glucose Calcium Total Bilirubin AST ALT Alkaline Phosphatase Total Protein Albumin Globulin Albumin/Globulin Ratio Lipase Urine Color Urine Clarity Urine pH Ur Specific [place] Urine Protein Urine Glucose (UA) Urine Ketones Urine Occult Blood Urine Nitrite Urine Bilirubin Urine Urobilinogen Ur Leukocyte Esterase Urine RBC Urine WBC Ur Squamous Epith Cells Urine Bacteria Urine Mucus Radiography Diagnostic Testing: Clinical Impression(s) from Imaging Studies Abdomen/Pelvis CT 07/06/22 09:01 IMPRESSION: 1. No acute abdominal or pelvic abnormality. 2. Diverticulosis coli. Electronically Signed: Jose Alberto Meyers MD at 11:10 EDT , Discharge Plan Triage Chief Complaint: Abd Pain ED Provider: Dimitri Hogan Dx/Rx/DC Orders Clinical Impression: Acute abdominal pain in right flank, Nonspecific abdominal pain Instructions: ED Abdominal Pain Unkn Cause Fem, ED Flank Pain, Uncertain Cause Prescriptions: No Action albuterol sulfate [ProAir HFA] 90 mcg/actuation HFA aerosol inhaler 1 puff INHALATION Q6H PRN (Reason: Sob &/Or Wheezing) triamcinolone acetonide 0.1 % cream 1 applic TOPICAL DAILY PRN (Reason: skin irritation) lorazepam [Ativan] 1 mg tablet 1 mg PO BID PRN (Reason: anxiety) Qty: 14 0RF ondansetron 4 mg tablet,disintegrating 4 mg PO Q8H PRN (Reason: nausea and vomiting) Qty: 10 0RF Stand Alone Forms: ED Work / School Excuse Primary Care Provider: Abner Kidd Referrals: Abner Kidd MD [Primary Care Provider] - 3-5 Days if not improving Disposition Disposition: Home, Self Care
[2022-07-06 09:34] LABS: Mucous, Urine 0 SEEN /hpf (<or=2+); Red Blood Cells-Urine 0 SEEN /hpf (0-5)
[2022-07-06 09:38] LABS: Color, Urine Yellow (Yellow); Glucose, Dipstick Normal (Normal); Ketone-Dipstick Negative (Negative); Leukocyte Esterase-Dipstick 25 /ul (Negative); Nitrite-Dipstick Negative (Negative); Occult Blood-Urine Negative /ul (Negative); Protein-Dipstick Negative (Negative); Specific Gravity, Urine 1.015 (1.002-1.030); Urine Bilirubin Dipstick Negative (Negative); Urine Clarity Clear (Clear); Urine Urobilinogen Normal (Normal)
[2022-07-06] MEDS: 0.9% Normal Saline 1,000 ML 1000 ML IV (09:42)
[2022-07-06] MEDS: Ondansetron 4 MG/2 ML Vial IV (09:43)
[2022-07-06] MEDS: Ketorolac 30 MG/ML Syringe IV (09:43)
[2022-07-06 09:44] LABS: Bacteria 2+ /hpf (None Seen); Squamous Epithelial Cells - UA 0-5 SEEN /hpf (5-10); White Blood Cells 0-5 SEEN /hpf (0-5)
[2022-07-06 09:53] LABS: AST(SGOT) 23 U/L (15-37); Alanine Aminotransfer ALT/SGPT 45 U/L (13-56); Albumin, Serum 3.6 g/dL (3.2-5.0); Alkaline Phosphatase 79 U/L (45-117); Anion Gap 4 (5-15); BUN 10 mg/dL (7-18); BUN/Creat Ratio 13.4 RATIO (10-20); Calcium,Total 8.7 mg/dL (8.5-10.1); Chloride 111 mmol/L (98-107); Creatinine, Serum 0.75 mg/dL (0.55-1.02); EST Glomerular Filtration Rate 86 mL/min (>60); Est Glom Filt Rate - Afr Amer 105 mL/min (>60); Globulin 3.6 g/dL (2.2-4.2); Glucose 110 mg/dL (74-106); Lipase 147 U/L (73-393); Potassium 3.9 mmol/L (3.5-5.1); Protein, Total 7.2 g/dL (6.4-8.2); Sodium Level 140 mmol/L (136-145)
[2022-07-06 10:17] LABS: Absolute Lymphocyte Count 1.67 X10^3/uL (0.83-4.51); Absolute Neutrophil Count 3.2 X10^3/uL (2.0-7.7); Basophil# 0.02 X10^3/uL; Basophil% 0.4 % (0-1); Eosinophil# 0.16 X10^3/uL; Eosinophils% 2.9 % (0-5); Hematocrit 38.3 % (37-47); Hemoglobin 12.8 g/dL (12.0-15.0); Lymphocyte # 1.67 X10^3/ul (0.83-4.51); Lymphocyte % 30.1 % (19-41); Mean Corp Hgb Conc 33.4 g/dL (32-36); Mean Corpuscular Hgb 29.1 pg (27.0-32.0); Mean Platelet Vol. 10.6 fl (6.2-12.0); Monocyte# 0.45 X10^3/uL; Monocyte% 8.1 % (0-10); NRBC Flagged by Analyzer 0 % (0-5); Neutrophil # 3.21 X10^3/uL (2.7-7.7); Neutrophil % 57.8 % (47-70); Platelet Count 226 K/mm3 (150-450); RBC Distribution Width CV 12.9 % (11.6-14.6); RBC Distribution Width SD 40.4 fl (35.1-43.9); White Blood Count 5.6 K/mm3 (4.4-11.0)
== END 2022-07-06 12:52 | disposition home or self-care (01) ==
PROVIDERS: Emergency Provider Emergency Medicine; PCP Family Medicine; Visit Provider Emergency Medicine
DX: R10.9 Unspecified abdominal pain (principal)
CPT/HCPCS: 74176; 80053; 81001; 83690; 85025; 96361; 96374; 96375; 99283; J7030; A4216; J2405